=== PATIENT | male | born 1965 | race African-American/Black ===

== ENCOUNTER 2017-01-30 11:47 | Emergency (ER) | payer MEDICARE ==
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
[~2017-01-30 11:47] MED LIST: AUGMENTIN875 MG PO; NEURONTIN PO; PROTONIX PO
== END 2017-01-30 13:18 | disposition home or self-care (01) ==
LOC: CED 11:47 → CFTX 11:47
DX: S62.623A Displaced fracture of middle phalanx of left middle finger, initial encounter for closed fracture (principal); V89.9XXA Person injured in unspecified vehicle accident, initial encounter; Y92.410 Unspecified street and highway as the place of occurrence of the external cause
CPT/HCPCS: 29125; 29130; 73130; 99283

== ENCOUNTER 2017-02-13 09:30 | Emergency (ER) | payer MEDICARE ==
--- NOTE | ~2017-02-13 | CR181 ---
[facility] A Service of [facility] RADIOLOGY TEXT RESULTS PATIENT: DARRYN HURTADO LOCATION: [facility] : 63 UNIT #: [id number] AGE: [address]: Treva Rivas SEX: M ORDER DR: [id number] [facility] [place] [facility] [address] [place], [place] [address] [id number] E MR#: [id number] Acc #: [id number] NAME: DARRYN HURTADO. : 1965 SEX: M STUDY DATE/TIME: 02/13/2017 10:07 UNIT: [facility] ROOM: STUDY DESCRIPTION: CR Lumbar Spine 2 or 3 Views Attending Physician: Treva Rivas P.A.-C. Ordering Physician: Treva Rivas P.A.-C. MEDICAL IMAGING REPORT This report is preliminary unless electronic signature is present EXAM Lumbar spine, [address] abdomen and pelvis dated February 04, 2012. INDICATIONS 51-year-old male with low back pain after falling tonight ago. FINDINGS Spinal nerve stimulator device overlaps the lumbar spine and at L3-L4 on the lateral view, limiting evaluation. Spinal nerve stimulator leads terminate at the levels of the T11-T12 and L1-L2. No evidence of lead disruption. There is degenerative facet disease at L4-L5 and likely at L5-S1 as well. No acute fracture of the lumbar spine is seen. IMPRESSION Please note that the lumbar spine is limited in evaluation at L3-L4 due to obscuration by the patient's spinal nerve stimulator device. These vertebral bodies appear intact on the frontal view. Lumbar spine is anatomically aligned. No acute fracture is seen on this exam. There appears to be degenerative facet disease at L4-L5 and L5-S1. Dictated by... Rayray Ventura M.D. THIS IS AN ELECTRONICALLY VERIFIED REPORT Rayray Ventura M.D. at 02/14/2017 12:26 PM BLM/pcl [facility] A Service of [facility] RADIOLOGY TEXT RESULTS PATIENT: DARRYN HURTADO LOCATION: [facility] : 63 UNIT #: [id number] AGE: [address]: Treva Rivas SEX: M ORDER DR: TD: 02/13/2017 14:30 JOB #: [id number] MEDICAL IMAGING REPORT Page 1 of 1 COPY
--- NOTE | ~2017-02-13 | CR210 ---
[facility] A Service of [facility] & [facility] RADIOLOGY TEXT RESULTS PATIENT: DARRYN HURTADO LOCATION: [facility] : 63 UNIT #: [id number] AGE: [address]: Treva Rivas SEX: M ORDER DR: [id number] [facility] [address] [place], [place] [address] [id number] E MR#: [id number] Acc #: [id number] NAME: DARRYN HURTADO. : 1965 SEX: M STUDY DATE/TIME: 02/13/2017 10:08 UNIT: [facility] ROOM: STUDY DESCRIPTION: CR Ribs Uni 2 View W PA Ch Lt Attending Physician: Treva Rivas P.A.-C. Ordering Physician: Treva Rivas P.A.-C. Primary Care Physician: Kaity [facility] MEDICAL IMAGING REPORT This report is preliminary unless electronic signature is present EXAM PA chest with AP and oblique views of the left ribs COMPARISON: None INDICTIONS 52-year-old male with left sided rib pain after falling two nights ago. FINDINGS There is levoscoliosis of the lumbar spine. Spinal nerve stimulator is noted terminating at the level of T11-T12 No evidence of pneumothorax, pleural effusion or pulmonary contusion. The cardiomediastinal silhouette is normal. Multilevel degenerative facet disease and uncinate hypertrophy of the visualized lower cervical spine. Second spinal nerve stimulator lead terminates on the left at approximate level L1-2. There is acute nondisplaced fracture of the left posterior 11th rib. There is a healed fracture of the posterolateral left eighth rib. IMPRESSION 1. Acute nondisplaced fracture of the posterior left 11th rib. 2. No evidence of pneumothorax or pulmonary contusion. Dictated by... Rayray Ventura M.D. THIS IS AN ELECTRONICALLY VERIFIED REPORT Rayray Ventura M.D. at 02/14/2017 12:26 PM ISRRAEL/sofi TD: 02/13/2017 14:32 JOB #: [id number] MEDICAL IMAGING REPORT [facility] A Service of [facility] & [facility] RADIOLOGY TEXT RESULTS PATIENT: DARRYN HURTADO [id number] [birth year] UNIT #: [id number] AGE: [address]: Treva Rivas SEX: M ORDER DR: Page 1 of 1 COPY
== END 2017-02-13 11:05 | disposition home or self-care (01) ==
LOC: CFTX 09:30 → CED 09:30 → CFTX 10:43
DX: S22.32XA Fracture of one rib, left side, initial encounter for closed fracture (principal); I10 Essential (primary) hypertension; W10.9XXA Fall (on) (from) unspecified stairs and steps, initial encounter; Y92.009 Unspecified place in unspecified non-institutional (private) residence as the place of occurrence of the external cause
CPT/HCPCS: 71101; 72100; 96372; 99284; J1885